=== PATIENT | male | born 1990 | race Caucasian/White ===

== ENCOUNTER 2021-10-04 07:43 | Outpatient (CLI) | payer MEDICARE, MEDICAID, SELFPAY ==
--- NOTE | 2021-10-11 13:35 | WPDHOMESLEEP ---
Sleep Study - Home Unattended Date of Study: 10/04/21 <Anjana Coffman DO - Last Filed: 10/11/21 13:51> Ordering Provider: Luiz Valdovinos APRN <Anjana Coffman, DO - Last Filed: 10/11/21 13:51> Interpreting Provider: Anjana Coffman DO <nAjana Coffman, DO - Last Filed: 10/11/21 13:51> Home Sleep Study Type: Apnea Link Air <Anjana Coffman DO - Last Filed: 10/11/21 13:51> Height: 1.8 m <Anjana Coffman DO - Last Filed: 10/11/21 13:51> Weight: 127.006 kg <Anjana Coffman DO - Last Filed: 10/11/21 13:51> Body Mass Index: 39.0 <Anjana Coffman DO - Last Filed: 10/11/21 13:51> Neck Circumference (inches): 19 <Anjana Coffman DO - Last Filed: 10/11/21 13:51> [place]: 0 <Anjana Coffman DO - Last Filed: 10/11/21 13:51> Reason for Sleep Study The patient wakes up throughout the night having difficulty breathing. <Anjana Coffman DO - Last Filed: 10/11/21 13:51> Sleep History The patient is a 31-year-old male with asthma, autism, Crohn's disease, and cognitive impairment that had a home sleep test ordered by the Pulmonary group due to suspicion of sleep apnea. The patient occasionally awakens from sleep short of breath. He rarely awakens at night with heartburn, belching or cough. He constantly snores and is frequently loud enough that others complain. He frequently has trouble sleeping when he has a cold. He occasionally wakes up gasping for air throughout the night. He rarely has breathing problems at night observed by others. He occasionally sweats excessively at night. He occasionally has heart palpitations or irregular heartbeats during the night. He frequently falls asleep during the day. He denies sleep paralysis and cataplexy. He occasionally experiences vivid dreamlike scenes upon awakening or falling asleep. He occasionally has nightmares. He occasionally has thoughts racing through his mind. He rarely feels sad or depressed. He occasionally has anxiety. He denies noticing parts of his body jerk. He denies kicking throughout the night. He denies having crawling and aching feelings in his legs as well as leg pain during the night. He denies grinding his teeth throughout the night and awakening with morning jaw pain. He denies being bothered by pain during the day and being awakened by pain during the night. He denies waking up feeling stiff in the morning with sore achy muscles. He denies waking up with pain in the neck, spine and other joints. He goes to bed at 7:00 p.m. on both weekdays and weekends. It takes him 20 minutes to fall asleep. He wakes up twice throughout the night for unknown reasons. When he wakes up, he will look at his phone. He is unsure how long it takes him to fall back asleep. He wakes up at 5:00 a.m. on both weekdays and weekends. He typically gets 8-9 hours of sleep per night. He will not spend any time in bed after waking up in the morning. He currently lives with his parents. He does not consume any caffeinated beverages within 2 hours of bedtime. He does not engage in physical exercise before bedtime. He will not read or watch television before falling asleep. He will take naps in the afternoon or the evening. He will drink 1 cup of coffee per day. He denies tobacco, alcohol and recreational drug use. <Anjana Coffman DO - Last Filed: 10/11/21 13:51> [facility] Past Medical History Medical History: Medical History Autism Cough Crohn disease Gastrointestinal irritation Hernia Small bowel obstruction SOB (shortness of breath) <Anjana Coffman DO - Last Filed: 10/11/21 13:51> Family History Family History: Family History Grandparent Family history of chronic obstructive pulmonary disease Family history of malignant neoplasm of merritt
[2021-10-11 13:51] VITALS: BMI 39.0
== END 2021-10-10 10:54 | disposition home or self-care (01) ==
PROVIDERS: PCP Family Medicine; Visit Provider Nurse Practitioner Family
DX: G47.33 Obstructive sleep apnea (adult) (pediatric) (principal); R06.83 Snoring
CPT/HCPCS: 95806

== ENCOUNTER 2022-08-07 08:20 | Emergency (ER) | payer MEDICARE, MEDICAID, SELFPAY ==
--- NOTE | 2022-08-07 08:24 | ED.URI ---
HPI - URI/Sore Throat General Chief Complaint: Upper Respiratory Infection Stated Complaint: SOB, Chest Pain, Back Pain Time Seen by Provider: 08/07/22 08:31 Source: patient, RN notes reviewed and old records reviewed Mode of arrival: ambulatory Limitations: no limitations History of Present Illness HPI Narrative: 31-year-old male presents to the [facility] with complaints 3 days of intermittent shortness of breath, intermittent chest tightness with coughing and deep breathing. Has a history of asthma and pleurisy. Has no wheezing, denies fevers, abdominal pain. Patient denies any radiation of pain. Denies nausea or vomiting. Patient reports that he had pleurisy a couple months ago and it feels exactly the same No treatment prior to arrival Pain is reproducible along the right sternal border with palpation. MD elicited complaint: cough Pertinent past history: asthma Related Data Home Medications Medication Instructions Recorded Confirmed aripiprazole 5 mg tablet 5 mg PO DAILY 08/07/22 08/07/22 fluoxetine 10 mg capsule 10 mg PO DAILY 08/07/22 08/07/22 Allergies Allergy/AdvReac Type Severity Reaction Status Date / Time hydrocodone Allergy Unknown Unknown Verified 08/07/22 13:58 Review of Systems Review of Systems: All systems reviewed & are unremarkable except as noted in HPI and below Constitutional: Constitutional: Reports no additional constitutional complaints Eyes: Eyes: Reports no additional eye complaints ENT: Reports system reviewed and no additional complaints, except as documented Cardiovascular: Cardiovascular: Reports no additional cardiovascular complaints, Denies chest pain and Denies dyspnea Respiratory: Respiratory: Reports as per HPI, Denies chest congestion, Reports cough, Reports dyspnea and Denies wheezing Gastrointestinal: Gastrointestinal: Reports no additional gastrointestinal complaints, Denies abdominal pain, Denies nausea and Denies vomiting Musculoskeletal: Musculoskeletal: Reports no additional musculoskeletal complaints Integumentary/Breasts: Skin/Breast: Reports system reviewed and no additional complaints, except as docu Neurologic: Reports system reviewed and no additional complaints, except as documented Psychiatric: Psychiatric: Reports no additional psychiatric complaints Allergic/Immunologic: Allergic/Immunologic: Reports no additional allergic/immunologic complaints PMFSH Past Medical History Medical History Autism Cough Crohn disease Gastrointestinal irritation Hernia Small bowel obstruction SOB (shortness of breath) Family History Family History Grandparent Family history of chronic obstructive pulmonary disease Family history of malignant neoplasm of breast Family history of heart disease in male family member before age 55 Diabetes mellitus Other Family history of cardiovascular disease Social History Social History Alcohol intake: never Comments At the time of my signature, I reviewed and agree with the nursing past medical, surgical, social, and family history. There is no relevant family history pertinent to the patient complaint. Exam Const: General: cooperative, healthy appearing, comfortable, no acute distress, well developed, alert, average body habitus and well nourished Nutritional Appearance: well nourished and obese Orientation/consciousness: patient oriented x3 Limitations: no limitations HENMT: Head: normal to inspection Ears: hearing grossly normal bilaterally and external ears normal Face/Nose/Sinus: Normal external nose present, Normal nares present, Normal nasal mucous membranes and turbinates present and normal facial exam Face and sinus: normal facial exam Mouth: Yes Normal oral and palatal mucosa present, Yes lip normal and Yes moist mucous membranes Throat: po
[2022-08-07 08:35] VITALS: BP 131/75; PULSE 90; RESP 20; TEMP 37.1; O2SAT 99
== END 2022-08-07 08:50 | disposition home or self-care (01) ==
PROVIDERS: Emergency Provider Nurse Practitioner; PCP Orthopaedic Surgery Orthopaedic Trauma
DX: R06.02 Shortness of breath (principal); R09.1 Pleurisy; F84.0 Autistic disorder; K50.90 Crohn's disease, unspecified, without complications
CPT/HCPCS: 99213; G0463

== ENCOUNTER → 2022-09-21 14:56 | Outpatient (CLI) | payer MEDICARE, MEDICAID, SELFPAY ==
--- NOTE | ~2022-09-21 | MR_ITS ---
EXAMINATION: MR brain/brain stem wo/w con DATE: 09/21/2022 15:42 INDICATION: Migraine headache. Abnormal brain scan. TECHNIQUE: Magnetic resonance imaging (MRI) of the brain and brainstem was performed without and with 20 mL MultiHance intravenous contrast. COMPARISON: Head CT 04/24/2011 FINDINGS: There are approximately 6 foci of increased T2-weighted signal intensity in the cerebral wh ite matter. The pineal gland is prominent, but stable from 04/24/11, likely a normal variant. There is no intracranial hemorrhage or acute infarction. The ventricles are normal in size. The orbits are no rmal. The paranasal sinuses are clear. The mastoid air cells are normal. IMPRESSION: 1. Mild nonspecific cerebral white matter disease. The differential diagnosis includes premature chrome polisher titus small vessel ischemic disease (especially if the patient has cardiovascular risk factors), demyel inating disease such as multiple sclerosis, drug abuse, vasculitis, or reactive astrocytosis (gliosis ) secondary to nonspecific etiology. Reviewed, dictated and finalized at location A. NG CAPTAIN IMPRESSION: 1. Mild nonspecific cerebral white matter disease. The differential diagnosis i ncludes premature chronic small vessel ischemic disease (especially if the rowena ent has cardiovascular risk factors), demyelinating disease such as multiple sc lerosis, drug abuse, vasculitis, or reactive astrocytosis (gliosis) secondary t o nonspecific etiology.
== END ==
PROVIDERS: PCP Internal Medicine; Visit Provider Internal Medicine
DX: R94.02 Abnormal brain scan (principal); R93.0 Abnormal findings on diagnostic imaging of skull and head, not elsewhere classified
CPT/HCPCS: 70553; A9577

== ENCOUNTER 2022-10-07 11:32 | Emergency (ER) | payer MEDICARE, MEDICAID, SELFPAY ==
[2022-10-07 11:45] VITALS: BP 127/92; PULSE 86; RESP 17; TEMP 36.6; O2SAT 98
--- NOTE | 2022-10-07 11:58 | ED.NEUROSD ---
HPI - Neuro Symptoms/Deficit General Chief Complaint: Neuro Symptoms/Deficit Stated Complaint: neurological deficit Time Seen by Provider: 10/07/22 11:49 History of Present Illness HPI Narrative: Patient has had ongoing intermittent right-sided tingling for months, as well as occasional migraines or staring spells. Has been seen at [place] for this and had workup including MRI and EEG however unable to get into neurologist until June. No new symptoms, weakness, or headache in the last few days. Related Data Home Medications Medication Instructions Recorded Confirmed aripiprazole 5 mg tablet 5 mg PO DAILY 08/07/22 08/07/22 fluoxetine 10 mg capsule 10 mg PO DAILY 08/07/22 08/07/22 Allergies Allergy/AdvReac Type Severity Reaction Status Date / Time No Known Allergies Allergy Verified 10/07/22 11:49 Review of Systems Review of Systems: CONST: No fever. HEENT: No sore throat C/V: No chest pain RESP: No cough GI: No nausea or vomiting : No dysuria. M/S: No joint pain. SKIN: No rash. NEURO: [No current headache or focal numbness or weakness] PSYCH: Anxiety PMFSH Past Medical History Medical History Autism Cough Crohn disease Gastrointestinal irritation Hernia Small bowel obstruction SOB (shortness of breath) Family History Family History Grandparent Family history of chronic obstructive pulmonary disease Family history of malignant neoplasm of breast Family history of heart disease in male family member before age 55 Diabetes mellitus Other Family history of cardiovascular disease Social History Social History Alcohol intake: never Exam Narrative: EXAMINATION OF ORGAN SYSTEMS/BODY AREAS: Constitutional: Vital signs per nursing GENERAL:[No acute distress, non-toxic appearing.] HEAD: Normal with no signs of head trauma. EYES: EOMI, conjunctiva normal ENT: Hearing grossly intact LUNGS: Nonlabored breathing. HEART: [Regular rate and rhythm] ABD: [Soft], [nontender to palpation] EXT: Normal range of motion SKIN: [No rashes or lesions.] NEURO: [Alert and oriented x 3. No gross focal sensory or strength deficits. CN 2-12 intact.] Ambulating with normal steady gait PSYCH: Normal affect Course Vital Signs Vital signs: Vital Signs Temperature 97.9 F 10/07/22 11:45 Pulse Rate 86 10/07/22 11:45 Respiratory Rate 17 10/07/22 11:45 Blood Pressure 127/92 H 10/07/22 11:45 Pulse Oximetry 98 10/07/22 11:45 Oxygen Delivery Room Air 10/07/22 11:45 Temperature 97.9 F 10/07/22 11:45 Pulse Rate 78 10/07/22 12:13 Respiratory Rate 16 10/07/22 12:13 Blood Pressure 123/61 10/07/22 12:13 Pulse Oximetry 99 10/07/22 12:13 Oxygen Delivery Room Air 10/07/22 11:45 MDM - Neuro Symptoms/Deficit MDM Narrative Medical decision making narrative: 32yoM p/w intermittent, non-specific neurologic symptoms for months, nothing acute today; VSS, well-appearing without any neurologic deficits on exam here, I did review his recent MRI and noted impression of several foci. Discussed patient and findings with neurologist Dr Blanco who recommended followup with them in the clinic; did not feel emergent treatment/workup/admission required at this time. Discussed the MRI findings and the plan with the patient and family at bedside who are agreeable with this and open to outpatient neurology followup. Strict return precautions provided and they are stable for discharge. Discharge Plan Discharge Clinical Impression: Dizziness, Paresthesias Patient Disposition: Home, Self-Care Condition: Stable Instructions: Antibiotic Form, Paresthesia (ED) Prescriptions: No Action methylprednisolone [Medrol (Brandon)] 4 mg tablets,dose pack See Rx Instructions PO .COMPLEX Qty: 21 0RF Rx Instructions: orally per package dir
[2022-10-07 12:13] VITALS: BP 123/61; PULSE 78; RESP 16; O2SAT 99
== END 2022-10-07 12:14 | disposition home or self-care (01) ==
PROVIDERS: Emergency Provider Emergency Medicine; PCP Internal Medicine
DX: R42 Dizziness and giddiness (principal); R20.2 Paresthesia of skin
CPT/HCPCS: 99281

== ENCOUNTER 2023-03-17 12:15 | Outpatient (CLI) | payer MEDICARE, MEDICAID, SELFPAY ==
--- NOTE | ~2023-03-17 | MR_ITS ---
EXAMINATION: MR brain/brain stem wo/w con DATE: 03/17/2023 13:26 INDICATION: White matter disease. TECHNIQUE: Magnetic resonance imaging (MRI) of the brain and brainstem was performed without and with 20 mL MultiHance intravenous contrast. COMPARISON: Brain MRI 09/21/2022 FINDINGS: There are a few scattered foci of increased T2-weighted signal intensity in the cerebral wh ite matter. There is no acute infarct or intracranial hemorrhage. The ventricles are normal in size. The paranasal sinuses are clear. The orbits are normal. The mastoid air cells are normal. IMPRESSION: 1. Stable mild nonspecific cerebral white matter disease. The differential diagnosis includes prematu re chronic small vessel ischemic disease (especially if the patient has cardiovascular risk factors), demyelinating disease such as multiple sclerosis, drug abuse, vasculitis, or reactive astrocytosis ( gliosis) secondary to nonspecific etiology. Reviewed, dictated and finalized at location E. IMPRESSION: 1. Stable mild nonspecific cerebral white matter disease. The differential diag nosis includes premature chronic small vessel ischemic disease (especially if t he patient has cardiovascular risk factors), demyelinating disease such as mult iple sclerosis, drug abuse, vasculitis, or reactive astrocytosis (gliosis) seco ndary to nonspecific etiology.
== END 2023-03-17 12:16 | disposition home or self-care (01) ==
PROVIDERS: PCP Internal Medicine; Visit Provider Student in an Organized Health Care Education/Training Program
DX: R90.89 Other abnormal findings on diagnostic imaging of central nervous system (principal); R93.0 Abnormal findings on diagnostic imaging of skull and head, not elsewhere classified
CPT/HCPCS: 70553; A9577

== ENCOUNTER 2024-05-31 08:19 | Outpatient (CLI) | payer MEDICARE, MEDICAID, SELFPAY ==
--- NOTE | ~2024-05-31 | MR_ITS ---
MRI of the thoracic spine Clinical History: Abnormal findings Technique: Axial T2-weighted and gradient images, and sagittal T1-weighted, T2-weighted, and STIR lucho ges were acquired. Following intravenous administration of 20 cc MultiHance gadolinium, T1-weighted f at-sat imaging was performed in the axial and sagittal planes. Findings: There is no fracture or subluxation of the thoracic spine. Vertebral bodies maintain normal height and line. No bone marrow signal abnormality seen. No significant disc bulge or herniation seen at any thoracic level. No spinal canal stenosis or cord compression identified. Neural foramina are preserved. No abnormal signal seen in the spinal cord. No epidural mass or collection seen. Paravertebral soft tissues are unremarkable. No abnormal postcontrast enhancement identified. Impression: Unremarkable exam. Reviewed, dictated and finalized at [facility]. Impression: Unremarkable exam.
--- NOTE | ~2024-05-31 | MR_ITS ---
MRI of the cervical spine Clinical History: Other abnormal findings Technique: Axial T2-weighted and gradient images, and sagittal T1-weighted, T2-weighted, and STIR lucho ges were acquired. Following intravenous administration of 20 cc MultiHance gadolinium, T1-weighted f at-sat imaging was performed in the axial and sagittal planes. Findings: There is no fracture or subluxation of the cervical spine. Osseous alignment is unremarkabl e. No abnormal bone marrow signal identified. There is no significant disc bulge or herniation at any cervical level. No spinal canal stenosis or c ord compression and cervical spine. Neural foramina are preserved. No abnormal signal seen in the spinal cord. No epidural mass or collection. Paravertebral soft tissues are unremarkable. No abnormal postcontrast enhancement. Impression: Unremarkable exam. Reviewed, dictated and finalized at location . Impression: Unremarkable exam.
--- NOTE | ~2024-05-31 | MR_ITS ---
MRI of the brain Clinical History: Headache, white matter disease Technique: Axial and sagittal T1-weighted images were acquired. These were followed by axial T2-weigh willy, diffusion weighted, gradient, and FLAIR images. Following intravenous administration of 20 cc Mu ltiHance gadolinium, T1-weighted fat-sat imaging was performed in the axial, coronal, and sagittal pl anes. COMPARISON: 03/17/2023 Findings: No acute infarct, intracranial hemorrhage or mass lesion seen. Several small subtle FLAIR h yperintense subcortical white matter lesions are stable from prior exam. Ventricles and subarachnoid spaces are unremarkable. Orbits are unremarkable. Paranasal sinuses and m astoid air cells are clear. Major intracranial flow voids are intact. Sagittal midline structures are intact. No abnormal postcontrast enhancement. IMPRESSION: Several minimal white matter lesions are stable from prior exam, nonspecific. Differential diagnosis is unchanged. Reviewed, dictated and finalized at location . IMPRESSION: Several minimal white matter lesions are stable from prior exam, nonspecific. D ifferential diagnosis is unchanged.
== END 2024-05-31 08:20 | disposition home or self-care (01) ==
PROVIDERS: PCP Internal Medicine; Visit Provider Student in an Organized Health Care Education/Training Program
DX: R90.89 Other abnormal findings on diagnostic imaging of central nervous system (principal)
CPT/HCPCS: 70553; 72156; 72157; A9577

== ENCOUNTER 2025-03-18 17:46 | Emergency (ER) | payer MEDICARE, SELFPAY ==
--- NOTE | ~2025-03-18 | XR_ITS ---
EXAMINATION: XR chest 2V Exam Date/Time: 03/18/2025 21:05 CDT HISTORY: concern for CHF Comparison: 06/02/2015. RESULT: Lines, tubes, and devices: None. Lungs and pleura: Clear. Cardiomediastinal silhouette: Stable. Other: No acute osseous or upper abdominal finding. IMPRESSION: No acute cardiopulmonary process. Reviewed, dictated and finalized at location K.
--- OUTSIDE RECORDS SUMMARY | 2025-03-18 17:48 | XMS_ITS | Continuity of Care Document ---
Author Organization [facility] Address [id number] [place] [address] [address] [place] [address] Phone Care Team Providers Care Beck Tender Name Role Phone Scout Persaud Unavailable Unavailable Advance Directives Directive Yes / No Effective Date File Name No Information Encounters Encounter Description Practice Location Reason(s) For Visit Diagnoses Date Provider Providers Copied on Encounter [facility], [address], [place], [place], [id number], [place] tel:[phone] [facility] [place]note 2] No Information [address]. [address] , [address], [place], [address], [place]. tel:[phone] Family History Family Member Type Diagnosis Age At Onset No Information Payers Payer name Insurance type Covered green party ID Authoriza tion(s) No Information Social History Type Description Quantity Date Captured Comments Sex Male Smoking Status No Information Chief Complaint And Reason For Visit No Information Reason For Referral Reason For Referral No Information History Of Present Illness Encounter Date Complaint History Of Prese nt Illness No Information Functional Status Date Functional Assessmen t No Information Instructions Date Instruction Additional Infor mation No Information Assessments Type Assessment Date No Information Patient Care Teams Name Effective Dates (start - stop) Status Members No Information
--- OUTSIDE RECORDS SUMMARY | 2025-03-18 17:48 | XMS_ITS | Encounter Summary ---
Author Organization [facility] Address [address] [place] [address] Care Team Providers Care Head Bander And Liner Operator Name Role Phone Adia Crockett MD Primary Care Provider [phone] Encounter Details Date Type Department Care Team (Late st Contact Info) Description 12/10/2013 [facility] Visit EXTERNAL NON-[facility] DEPT Josse Cotton MD [address] [phone] Social History Tobacco Use Types Packs/Day Years Used Date Smoking Tobacco: Never Smokeless Tobacco: Never Alcohol Use Standard Drinks/Week Comments No 0 (1 standard drink = 0.6 oz pur e alcohol) Sex and Gender Information Value Date Recorded Sex Assigned at Not on file 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
--- OUTSIDE RECORDS SUMMARY | 2025-03-18 17:48 | XMS_ITS | Clinical Summary ---
Author Organization [facility] Address [address] [place] [address] Care Team Providers Care Safety Scientist Name Role Phone Adia Crockett MD Primary Care Provider [phone] Source Comments [facility],non-[facility] Affiliates and Associated Physician Practices is amultiple site organization consisting of ambulatory clinics and hospital sitesin [place], [place], [place] and [place]. This disclosure is being madepursuant to the Care Everywhere program and may not contain all information available regarding this patient. Last updated 18.[facility] Allergies Active Allergy Reactions Criticality Noted Date Comments Shellfish Allergy 12/10/2013 Isoflavones 12/10/2013 Medications * Be aware that medications may not be up to date on this document. Alwaysverify current medications with the patient. citalopram (CELEXA) 40 MG tablet Active LORazepam (ATIVAN) 1 MG tablet TID Active pantoprazole (PROTONIX) 40 MG packet Active budesonide (ENTOCORT EC) 3 MG capsule Active Linaclotide (LINZESS PO) Active Family History Medical History Relation Name Comments Diabetes Maternal Grandfather Heart Failure Maternal Grandfather Breast Cancer after age 50 or unknown Maternal Grandmo ther Diabetes Maternal Grandmother Heart Failure Maternal Grandmother Relation Name Status Comments Father Alive Maternal Grandfather Maternal Grandmother Mother Alive Sister Alive Social History Tobacco Use Types Packs/Day Years Used Date Smoking Tobacco: Never Smokeless Tobacco: Never Alcohol Use Standard Drinks/Week Comments No 0 (1 standard drink = 0.6 oz pur e alcohol) Sex and Gender Information Value Date Recorded Sex Assigned at Not on file 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 Gender Identity Not on file Sexual Orientation Not on file Last Filed Vital Signs Vital Sign Reading Time Taken Comments Blood Pressure - - Pulse - - Temperature - - Respiratory Rate - - Oxygen Saturation - - Inhaled Oxygen Concentration - - Weight 86.2 kg (190 lb) 04/16/2015 6:42 AM CDT Height 175.3 cm (5' 9) 04/16/2015 6:42 AM CDT Body Mass Index 28.06 04/16/2015 6:42 AM CDT Plan of Treatment Health Maintenance Due Date Last Done Comments HIV SCREENING 2003 HEPATITIS C SCREENING 08/15/2006 DTAP/TDAP/TD VACCINES (1 - Tdap) 2007 HEPATITIS B VACCINE (1 of 3 - 19+ 3-dose series) 2007 HPV VACCINE (1 - 3-dose SCDM series) 2015 COVID-19 VACCINE (1 - 2023-2 5 season) 2024 DEPRESSION SCREENING 09/03/2024 INFLUENZA VACCINE (#1) 2025 ZOSTER VACCINE (1 of 2) 2038 HIB VACCINE Aged Out No longer eligi ble based on patient's age to complete this topic MENINGOCOCCAL (Group B) VACC INE SHARED DECISION-MAKING Aged Out No longer eligibl e based on patient's age to complete this topic MENINGOCOCCAL GROUPS A/C/Y/W VACCINE Aged Out No longer eligible b ased on patient's age to complete this topic PNEUMOCOCCAL VACCINE Aged Out No long er eligible based on patient's age to complete this topic Insurance [facility] MEDICA[facility] - [place] [facility] UHC MANAGED MEDICARE ADV Care Teams Safety Scientist Relationship Specialty Start Date End Date Adia Crockett MD [address] [place] [phone] PCP - General Family Medicine 12/10/13
[2025-03-18 18:12] VITALS: BP 121/69; PULSE 98; RESP 18; TEMP 36.3; O2SAT 98
--- NOTE | 2025-03-18 19:45 | PC.NURSE ---
pt presents to ED c/o bilateral leg swelling for about a month now. Per family they noticed a change when Topiramate dose was increased from 25mg to 100mg daily.
[2025-03-18 19:47] VITALS: BP 132/91; PULSE 80; RESP 16; TEMP 36.8; O2SAT 98
--- NOTE | 2025-03-18 20:36 | ECG_ITS ---
Test Date: 2025-03-18 21:31:59 Measurements Intervals [place] Rate: 85 P: -1 [place]: 148 QRS: 36 QRSD: 97 T: 28 QT: 366 QTc: 436 Interpretive Statements SINUS RHYTHM Electronically Signed On 03-18-2025 23:34:41 CDT by Meng Clancy D.O
--- NOTE | 2025-03-18 20:40 | ED_ITS ---
HPI - Extremity Problem General Chief complaint: Extremity Problem,Nontraumatic Stated complaint: LOWER EXTREMITY SWELLING [id number] Time Seen by Provider: 03/18/25 19:41 History of Present Illness HPI Narrative: Patient is a 34-year-old male who presents to the ER with worsening lower extremity edema over the past month. He has a history of down syndrome but no known cardiac history. Patient's mother reports he was recently started on Topamax because his primary care provider ?is trying to help him lose weight. He denies chest pain, shortness of breath, recent cough, or recent fevers. Patient's mother endorses a history of depression for which patient is medicated. Related Data Home Medications ?Medication ?Instructions ?Recorded ?Confirmed ?Last Taken ?Type fluoxetine 40 mg capsule 40 mg PO DAILY 02/18/25 02/18/25 Unknown History topiramate 25 mg tablet 25 mg PO DAILY PRN 02/18/25 02/18/25 Unknown History Allergies Allergy/AdvReac Type Severity Reaction Status Date / Time No Known Allergies Allergy Verified 02/18/25 14:43 Review of Systems 2 Review of Systems: All systems reviewed & are unremarkable except as noted in HPI and below PMFSH Past Medical History Medical History Crohn disease Gastrointestinal irritation Small bowel obstruction Autism Hernia Cough SOB (shortness of breath) Family History Family History Grandparent Family history of chronic obstructive pulmonary disease Family history of malignant neoplasm of breast Family history of heart disease in male family member before age 55 Diabetes mellitus Other Family history of cardiovascular disease Social History Social History Smoking status: Never smoker Alcohol intake: never Substance use: never Substance use type: does not use Lack of Transportation: No Lack of Food: Never True Current Housing: I Have Housing Concerned About Future Housing: No Difficulty Paying Gas/Electric Bills: No Difficulty Paying for Meds: No Currently Unemployed: No Education: High School Diploma/GED Difficulty w/ Childcare or Family Care: No Living arrangements: with family Gender identity (if verbalized by the patient): Male Exam 2 Narrative: GENERAL: Well appearing, well-nourished, non-toxic, in no acute distress. HEAD: Normocephalic, atraumatic. NECK: Supple. No adenopathy, no masses. RESPIRATORY: Airway patent, respirations nonlabored. Clear to auscultation bilaterally, no rales, rhonchi, wheezing. CARDIOVASCULAR: Regular rate and rhythm without murmurs, rubs, or gallops. Peripheral pulses 2+, bilateral 2+ lower extremity pitting edema, minimal redness ABDOMINAL: Soft, nontender, nondistended, no hepatosplenomegaly. Normoactive BS. MUSCULOSKELETAL: Moves all extremities. Strength/ROM intact without gross deformities. SKIN: Warm, dry, normal color. No rashes. NEURO: A&O X3. Speech clear. Cranial nerves II-XII intact. No ataxic movements. PSYCHIATRIC: Appropriate mood and affect. Normal interaction. Course Vital Signs Vital signs: Vital Signs Temperature 36.3 C L 03/18/25 18:12 Pulse Rate 98 03/18/25 18:12 Respiratory Rate 18 03/18/25 18:12 Blood Pressure 121/69 03/18/25 18:12 Pulse Oximetry 98 03/18/25 18:12 Temperature 36.8 C 03/18/25 19:47 Pulse Rate 80 03/18/25 19:47 Respiratory Rate 16 03/18/25 19:47 Blood Pressure 132/91 H 03/18/25 19:47 Pulse Oximetry 98 03/18/25 19:47 Oxygen Delivery Room Air 03/18/25 19:47 MDM - Extremity (Nontraumatic) MDM Narrative Medical decision making narrative: Patient is a 34-year-old male who presents to the ER with worsening lower extremity edema over the past month. He has a history of down syndrome but no known cardiac history. Patient's mother reports he was recently started on Topamax because his primary care provider ?is trying to help him lose weight. He denies chest pain, shortness of breath, recent cough, or recent fevers. Patient's mother endorses a history of depression for which patient is medicated. Labs Ordered: CBC, CMP, troponin, INR, PTT, proBNP, D-dimer Imaging Ordered: Chest x-ray Medications Ordered: None necessary Results: Patient's chest x-ray indicates No acute cardiopulmonary process. Diagnosis: Side effect of medication (Topamax), lower extremity edema Patient Education/Shared MDM: Results of lab work and imaging shared with patient and his parents. Patient strongly advised to maintain hydration status upon discharge and follow-up with his PCP as soon as possible. He will not be discharged home with any new prescriptions. Strict return precautions provided. Patient verbalized understanding and is in agreement with plan. Vital signs stable at time of discharge. All questions answered. Differential Diagnosis Differential diagnosis: Likely cellulitis, lower extremity edema and other (Congestive heart failure) Lab Data 03/18/25 20:47 03/18/25 20:47 Labs: Lab Results 03/18/25 03/18/25 Range/Units 20:47 20:47 WBC 12.4 H (4.5-10.0) K/mm3 RBC 5.00 (4.6-6.20) M/mm3 Hgb 14.3 (14.0-18.0) g/dL Hct 44.5 (42.0-52.0) % MCV 89.0 (80-100) fl MCH 28.6 (26-34) pg MCHC 32.1 (32-36) g/dl RDW 14.9 H (11.5-14.5) % Plt Count 351 (150-375) k/mm3 MPV 9.8 (7.4-10.4) fl Immature Gran % (Auto) 0.4 (0-0.5) % Neut % (Auto) 49.5 (45.5-73.1) % Lymph % (Auto) 37.9 (18.3-44.2) % [place] % (Auto) 7.0 (2.6-8.5) % Eos % (Auto) 4.6 H (0-4.4) % Baso % (Auto) 0.6 (0.2-1.2) % Lymph # (Auto) 4.70 H (0.9-3.2) K/mm3 [place] # (Auto) 0.9 H (0.1-0.6) K/mm3 Eos # (Auto) 0.6 H (0-0.3) K/mm3 Baso # (Auto) 0.1 (0.0-0.1) K/mm3 Abs Immat Gran (auto) 0.05 H (0.00-0.031) K/mm3 Absolute Neuts (auto) 6.1 (1.3-6.7) K/mm3 Absolute Nucleated RBC 0.000 (0.0-0.012) K/mm3 Band Neutrophils % Not Reportable Nucleated RBC % 0.0 (0.0-0.2) % Atypical Lymphocytes Present Platelet Estimate Adequate (Adequate) Hypochromasia 1+ Anisocytosis 1+ Schistocytes None seen PT 13.2 (11.1-14.7) Seconds INR 1.0 APTT 27.2 (22.3-36.8) Seconds D-Dimer 0.34 (<0.48) ug/mL Sodium 140 (137-145) mmol/L Potassium 3.7 (3.4-5.0) mmol/L Chloride 105 (98-107) mmol/L Carbon Dioxide 26 (22-30) mmol/L Anion Gap 9 (4-12) mmol/L BUN 10 (9-20) mg/dL Creatinine 0.84 (0.7-1.3) mg/dL Estim Creat Clear Calc 164 ml/min Estimated GFR > 60 (59 - ) Glucose 95 (65-110) mg/dL Calcium 9.2 (8.4-10.2) mg/dL Total Bilirubin 0.5 (0.2-1.3) mg/dL AST 45 (17-59) U/L ALT 45 (6-50) U/L Alkaline Phosphatase 108 (38-126) U/L Troponin I < 0.012 Cancelled (0.000-0.034) ng/mL NT-Pro-B Natriuret Pep 23 (19.9-100) pg/mL Total Protein 8.2 (6.3-8.2) g/dL Albumin 4.5 (3.5-5.1) g/dL Discharge Plan Discharge Clinical Impression: Lower extremity edema, Adverse reaction to drug Patient Disposition: Home Condition: Stable Instructions: Antibiotic Form, Leg Edema (ED) Additional Instructions: Please return to the ER with any worsening symptoms. Follow-up with primary care provider as soon as possible. Take all medications as prescribed, including regularly scheduled medications. Patient Language: Citizen Of [place] Prescriptions: No Action fluticasone propionate [Flovent HFA] 110 mcg/actuation HFA aerosol inhaler 2 puff inhalation Q12H Qty: 12 11RF Rx Instructions: administer with spacer, rinse and spit fluoxetine 40 mg capsule 40 mg PO DAILY topiramate 25 mg tablet 25 mg PO DAILY PRN albuterol sulfate 90 mcg/actuation HFA aerosol inhaler 1 - 2 inh inhalation Q4-6H PRN (Reason: shortness of breath or wheezing) Qty: 8.5 2RF albuterol sulfate 2.5 mg /3 mL (0.083 %) solution for nebulization See Rx Instructions .ROUTE .COMPLEX Qty: 360 2RF Dose Instruction: INHALE THE CONTENTS OF 1 VIAL USING NEBULIZER EVERY 6 HOURS NEEDED FOR SHORTNESS OF BREATH OR WHEEZING Rx Instructions: INHALE THE CONTENTS OF 1 VIAL USING NEBULIZER EVERY 6 HOURS NEEDED FOR SHORTNESS OF BREATH OR WHEEZING Follow-up/Referrals: Korey Bourgeois MD [Primary Care Provider] - Time of Disposition: 22:49
[2025-03-18 20:53] LABS: Hematocrit 44.5 % (42.0-52.0); Hemoglobin 14.3 g/dL (14.0-18.0); Immature Granulocyte Percent A 0.4 % (0-0.5); Lymphocytes Absolute Auto 4.70 K/mm3 (0.9-3.2); Mean Corpuscular HGB Conc 32.1 g/dl (32-36); Mean Corpuscular Hemoglobin 28.6 pg (26-34); Mean Corpuscular Volume 89.0 fl (80-100); Nucleated Red Blood Cells Absolute Auto 0.000 K/mm3 (0.0-0.012); Nucleated Red Blood Cells Perc 0.0 % (0.0-0.2); Platelet Count Result 351 k/mm3 (150-375); Red Blood Count 5.00 M/mm3 (4.6-6.20); White Blood Count 12.4 K/mm3 (4.5-10.0)
--- OUTSIDE RECORDS SUMMARY | 2025-03-18 20:57 | XMS_ITS | Clinical Summary ---
Author Organization [facility] Address [address] [place] [address] Care Team Providers Care Pipelaying Fitter Name Role Phone Aida Crockett MD Primary Care Provider [phone] Source Comments [facility],non-[facility] Affiliates and Associated Physician Practices is amultiple site organization consisting of ambulatory clinics and hospital sitesin [place], [place], [place]. This disclosure is being madepursuant to the Care Everywhere program and may not contain all information available regarding this patient. 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
--- OUTSIDE RECORDS SUMMARY | 2025-03-18 20:57 | XMS_ITS | Encounter Summary ---
Author Organization [facility] Address [address] [facility] [place] [address] Care Team Providers Care Hot Roll Inspector Name Role Phone Adia Crockett MD Primary Care Provider [phone] Encounter Details Date Type Department Care Team (Late st Contact Info) Description 12/10/2013 [facility] Visit EXTERNAL NON-[facility] DEPT Josse Cotton MD [address] [phone] Social History Tobacco Use Types Packs/Day Years Used Date Smoking Tobacco: Never Smokeless Tobacco: Never Alcohol Use Standard Drinks/Week Comments No 0 (1 standard drink = 0.6 oz pur e alcohol) Sex and Gender Information Value Date Recorded Sex Assigned at Not on file 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
--- OUTSIDE RECORDS SUMMARY | 2025-03-18 20:57 | XMS_ITS | Continuity of Care Document ---
Author Organization [facility] Address [id number] [place] [address] [address] [place] [address] Phone Care Team Providers Care Csw Name Role Phone Scout Persaud Unavailable Unavailable Advance Directives Directive Yes / No Effective Date File Name No Information Encounters Encounter Description Practice Location Reason(s) For Visit Diagnoses Date Provider Providers Copied on Encounter [facility], [address], [place], [place], [id number], [place] tel:[phone] SEC [facility] No Information 6-[address] Edward. [address] , [address], [place], [address], [place]. tel:[phone] Family History Family Member Type Diagnosis Age At Onset No Information Payers Payer name Insurance type Covered alliance party ID Authoriza tion(s) No Information Social [...]
[2025-03-18 21:03] LABS: Alanine Aminotransferase 45 U/L (6-50); Albumin Level 4.5 g/dL (3.5-5.1); Alkaline Phosphatase 108 U/L (38-126); Anion Gap 9 mmol/L (4-12); Aspartate Amino Transferase 45 U/L (17-59); Bilirubin,Total 0.5 mg/dL (0.2-1.3); Blood Urea Nitrogen 10 mg/dL (9-20); Calcium 9.2 mg/dL (8.4-10.2); Carbon Dioxide 26 mmol/L (22-30); Chloride 105 mmol/L (98-107); Estimated CRCL calculation 164 ml/min; Estimated Glomerular Filt Rate > 60; Glucose 95 mg/dL (65-110); Potassium 3.7 mmol/L (3.4-5.0); Sodium 140 mmol/L (137-145); Total Protein 8.2 g/dL (6.3-8.2)
[2025-03-18 21:04] LABS: INR 1.0; Prothrombin Time 13.2 Seconds (11.1-14.7)
[2025-03-18 21:05] LABS: Partial Thromboplastin Time 27.2 Seconds (22.3-36.8)
[2025-03-18 21:11] LABS: Anisocytosis 1+
[2025-03-18 21:12] LABS: Hypochromasia 1+; Schistocytes None Seen
[2025-03-18 21:15] LABS: NT Pro B Type Natriuretic Pept 23 pg/mL (19.9-100); Troponin I < 0.012 ng/mL (0.000-0.034)
[2025-03-18 23:01] VITALS: BP 120/72; PULSE 85; RESP 16; O2SAT 97
== END 2025-03-18 23:09 | disposition home or self-care (01) ==
PROVIDERS: Emergency Provider Registered Nurse; PCP Internal Medicine
DX: R60.0 Localized edema (principal); T42.6X5A Adverse effect of other antiepileptic and sedative-hypnotic drugs, initial encounter; Q90.9 Down syndrome, unspecified; K50.90 Crohn's disease, unspecified, without complications; F84.0 Autistic disorder; F32.A Depression, unspecified
CPT/HCPCS: 36415; 71046; 80053; 83880; 84484; 85025; 85380; 85610; 85730; 93005; 99284